=== PATIENT | male | born 1955 | race Caucasian/White ===

== ENCOUNTER 2025-06-15 09:23 | Day surgery (SDC) | payer MEDICARE, BC ==
[2025-06-15] MEDS ORDERED: Sodium Chloride 0.9% 10 ML Syringe FLUSH PRN (09:30)
[2025-06-15] MEDS: Lactated Ringers 1,000 ML IV SCH (09:51)
[2025-06-15] MEDS ORDERED: Midazolam 1 MG/ML 2 ML SDV ONE (10:14)
[2025-06-15] MEDS ORDERED: Propofol 200 MG/20 ML SDV ONE (10:14)
[2025-06-15] MEDS ORDERED: Lactated Ringers 1,000 ML ONE (11:00)
== END 2025-06-15 12:26 | disposition home or self-care (01) ==
LOC: KA.SDS 09:23
PROVIDERS: ATTEND Surgery
DX: Z12.11 Encounter for screening for malignant neoplasm of colon (principal); D12.0 Benign neoplasm of cecum; D12.3 Benign neoplasm of transverse colon; D12.5 Benign neoplasm of sigmoid colon; K62.1 Rectal polyp; R19.5 Other fecal abnormalities; K57.30 Diverticulosis of large intestine without perforation or abscess without bleeding; K64.4 Residual hemorrhoidal skin tags; I10 Essential (primary) hypertension; E03.9 Hypothyroidism, unspecified; F17.210 Nicotine dependence, cigarettes, uncomplicated; Z88.0 Allergy status to penicillin; Z88.8 Allergy status to other drugs, medicaments and biological substances; Z79.899 Other long term (current) drug therapy; Z79.890 Hormone replacement therapy
CPT/HCPCS: 00811; 88305; J2250; J2704; J7120